=== PATIENT | male | born 1975 | race African-American/Black ===

== ENCOUNTER → 2019-01-23 | Outpatient (CLI) | payer OTHER ==
--- NOTE | 2019-01-24 08:20 | REP ---
Clinical: Chronic lower back pain. Technique: AP, lateral, bilateral oblique, and coned-down views. Findings: Alignment and lordosis is maintained. The vertebral bodies including transverse process and spinous processes are intact and normal. There is no evidence for acute fracture / compression injury or subluxation. No evidence for spondylolysis or spondylolisthesis. Minimal disc space narrowing at L5-S1 and to a lesser extent L4-5 cannot be excluded. Impression: Relatively normal age appropriate examination. However, subtle disc space narrowing at L5-S1 and L4-5 cannot be excluded. Electronically Signed by Jose Templeton MD 01/24/2019 08:12 A
== END ==
LOC: M RAD 09:01
PROVIDERS: ATTEND Surgery
DX: M51.36 Other intervertebral disc degeneration, lumbar region (principal); M51.37 Other intervertebral disc degeneration, lumbosacral region